=== PATIENT | male | born 2000 | race Two or more races ===

== ENCOUNTER 2025-02-03 01:09 | Emergency (ER) | payer MEDICAID, SELFPAY ==
[2025-02-03 01:10] VITALS: BMI 19.5
[2025-02-03 01:38] VITALS: BP 119/76; PULSE 90; RESP 18; TEMP 36.8; O2SAT 97
[2025-02-03] MEDS: MECLIZINE HCL 25 MG TABLET PO (02:07)
--- NOTE | 2025-02-03 02:47 | EDNOTE_ITS ---
ED Dizzyness RME/HPI General Chief Complaint: Dizziness Stated Complaint: VERTIGO Time Seen by Provider: 02/03/25 01:51 Arrival date/time: 02/03/25 01:09 24M with history of marijuana use presents to ED with several months of intermittent vertigo/dizziness. Patient recently moved here and has yet to find PCP. Limitations: no limitations Related Data Allergies Allergy/AdvReac Type Severity Reaction Status Date / Time No Known Allergies Allergy Verified 08/03/22 16:38 Review of Systems Review of Systems Systems Reviewed: All systems reviewed, normal except as documented Constitutional Constitutional: Reports system reviewed and no additional complaints, except as documented, Denies fever(s) and Denies headache(s) ENT Ears, Nose, Mouth, and Throat: Reports as per HPI, Denies disequilibrium, Denies headache(s) and Reports vertigo Cardiovascular Cardiovascular: Reports system reviewed and no additional complaints, except as documented, Denies chest pain and Denies dyspnea Respiratory Respiratory: Reports system reviewed and no additional complaints, except as documented, Denies cough and Denies dyspnea Gastrointestinal Gastrointestinal: Reports system reviewed and no additional complaints, except as documented, Denies abdominal pain, Denies nausea and Denies vomiting Neurologic Neurologic: Reports system reviewed and no additional complaints, except as documented, Denies confusion, Denies disequilibrium, Denies headache(s) and Reports vertigo Psychiatric Psychiatric: Denies confusion Past Medical History Social History SMOKING STATUS: Never smoker ED Exam General Limitations: Present no limitations General appearance: Present alert and in no apparent distress Head Head exam: Present atraumatic Eye Eye exam: Present normal appearance, PERRL and EOMI ENT ENT exam: Present normal exam, normal oropharynx and mucous membranes moist Neck Neck exam: Present normal inspection, full ROM and trachea midline Chest Chest inspection: Present normal inspection and symmetric chest wall rise Respiratory Respiratory exam: Present normal lung sounds bilaterally Cardiovascular Cardiovascular exam: Present regular rate, normal rhythm and normal heart sounds Abdominal Exam Abdominal exam: Present soft and normal bowel sounds Extremities Exam Extremities exam: Present normal inspection and full ROM Back Exam Back exam: Present normal inspection and full ROM Neurological Exam Neurological exam: Present alert, oriented X3 and CN II-XII intact Psychiatric Psychiatric exam: Present normal affect and normal mood Skin Skin exam: Present warm, dry, intact and normal color Course Quality Measures none Orders Category Date Time Status Meclizine HCl [Antivert] Med 02/03/25 01:51 Discontinued 25 mg PO X1 ONE Vital Signs Vital signs: Vital Signs Temperature 98.2 F 02/03/25 01:38 Pulse Rate 90 02/03/25 01:38 Respiratory Rate 18 02/03/25 01:38 Blood Pressure 119/76 02/03/25 01:38 Pulse Oximetry (%) 97 02/03/25 01:38 Oxygen Delivery Method Room Air 02/03/25 01:38 O2 at 97% on RA and WNLs Dizziness MDM Narrative MDM Narrative:: 24M with history of marijuana use presents to ED with several months of intermittent vertigo/dizziness. Patient recently moved here and has yet to find PCP. Physical exam reveals normal pupil response and EOM. Gait normal. Patient is afebrile, calm, and alert. Meds and skilled nursing facility counselor given. Patient data External records reviewed:: None Clinical information provided by:: patient Social determinants that could affect healthcare access:: substance use Patient has the following chronic illnesses:: none How is presenting disease/condition affected by chronic disease/condition?: no chronic disease Evaluation data The following diagnostics were reviewed and interpreted by me:: other (specify) (none) Lab and/or radiology exams considered but not ordered:: not ordered Interpretation Summary: n/a Medications / Prescriptions Medications or Prescriptions considered but not ordered:: ordered Medication administrations:: Medication Administration History Discontinued Medications Meclizine HCl (Meclizine Hcl 25 Mg Tablet) 25 mg PO X1 ONE Stop: 02/03/25 01:52 Last Admin: 02/03/25 02:07 Dose: 25 mg Documented By: ANGELINA austin Consultations Consultation(s) initiated? (list below): No Diagnosis Dizziness Differential Diagnosis: adverse reaction to drug, benign paroxysmal positional vertigo, orthostatic hypotension, vertebral basilar insufficiency, acute vestibular neuronitis, transient cerebral ischemia and other (dizziness) Most likely diagnosis given after review of the tests above:: dizziness Admission Indicated Admission indicated?: not indicated Admission Request Was there a request for admission?: No Disposition Plan Disposition Plan: Discharge Discharge Attestation Discharge Attestation: The patient and all family members were given an opportunity to ask questions and understood the discharge instructions. Discharge instructions specifically effects, indications for sooner follow up or return to the emergency department, and the expected course of current diagnosis. Patient condition: Stable Discharge Plan Plan Patient Disposition: HOME (Self Care) Disposition Comment: Stable Problem List Clinical Impression: Dizziness Patient/Caregiver Discharge Instructions Education Materials: ED Dizziness, Uncertain Cause Additional Instructions: Please follow-up with PCP within 24-48 hours and return immediately if symptoms worsen. Recommend establishing care with PCP to work-up underlying cause of dizziness. Print Language: Wolof Stand Alone Forms: Patient Portal Info Letter PA/EMAIL DESIGNER Supervising Physician DEWAYNE/GERA Supervising Physician: Dr. Gallagher
== END 2025-02-03 02:07 | disposition home or self-care (01) ==
LOC: SERX 04:23
PROVIDERS: Emergency Provider Emergency Medicine
DX: R42 Dizziness and giddiness (principal)
CPT/HCPCS: 99282; A9270